=== PATIENT | female | born 1960 | race Caucasian/White ===

== ENCOUNTER 2018-12-09 06:25 | Day surgery (SDC) | payer MEDICARE, OTHER ==
--- NOTE | 2018-11-27 10:21 | PCM.PREANE ---
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 - Allergies Allergies/Adverse Reactions: Allergies Allergy/AdvReac Type Severity Reaction Status Date / Time bacitracin Allergy Edema Verified 07/30/14 15:00 [From Neosporin ([id number])] bacitracin zinc Allergy Edema Verified 07/30/14 15:00 [From Neosporin ([id number])] neomycin sulfate Allergy Edema Verified 07/30/14 15:00 [From Neosporin ([id number])] polymyxin B Allergy Edema Verified 07/30/14 15:00 [From Neosporin ([id number])] - Anesthesia Plan Pre-Op Medication Ordered: Beta Jodie Beta Jodie: Atenolol Med Last Dose Date: 11/28/18 - Acknowledgements Anesthesia Type Planned: MAC Pt an Appropriate Candidate for the Planned Anesthesia: Yes Alternatives and Risks of Anesthesia Discussed w Pt/Guardian: Yes Pt/Guardian Understands and Agrees with Anesthesia Plan: Yes PreAnesthesia Questionnaire - HOME MEDS Home Medications: Home Meds Aspirin [Halfprin] 81 mg PO DAILY 07/30/14 [History] Calcium Carbonate 1,200 mg PO DAILY 07/30/14 [History] Cholecalciferol (Vitamin D3) [Vitamin D] 1,000 units PO DAILY 07/30/14 [History] Fenofibrate 160 mg PO DAILY 07/30/14 [History] Fish Oil/[place]-3 Fatty Acids [Fish Oil 1,000 MG] 1,000 mg PO DAILY 07/30/14 [ History] Levothyroxine [Synthroid] 50 mcg PO BEDTIME 07/30/14 [History] - CURRENT (IN HOUSE) MEDS Current Meds: Current Medications Lactated Ringer's (Ringers, Lactated) 1,000 mls @ 125 mls/hr IV ASDIRECTED SATISH Stop: 11/28/18 23:00 Lidocaine/Sodium Bicarbonate (Buffered Lidocaine 1% In Ns 8.4%) 0.25 ml IDERM ONETIME PRN PRN Reason: Prior to IV Start Stop: 11/28/18 18:00 Sodium Chloride (Saline Flush) 10 ml FLUSH ASDIRECTED PRN PRN Reason: Keep Vein Open Stop: 11/28/18 18:00
[~2018-12-09 06:25] MED LIST: Lactated Ringers 1,000 ML IV SCH; Lidocaine 1%/Sod Bicarbonate in NS 8.4% 1 ML Syringe IDERM PRN; Sodium Chloride 0.9% 10 ML Syringe FLUSH PRN
[2018-12-09] MEDS ORDERED: Propofol 200 MG/20 ML SDV ONE (06:27)
[2018-12-09] MEDS ORDERED: Midazolam 1 MG/ML 2 ML SDV ONE (06:27)
[2018-12-09] MEDS ORDERED: fentaNYL 100 MCG/2 ML SDV ONE (06:27)
[2018-12-09] MEDS ORDERED: Lidocaine 1% 4 ML ONE (06:28)
[2018-12-09] MEDS ORDERED: Bupivacaine 0.25% 30 ML SDV ONE (06:42)
[2018-12-09] MEDS ORDERED: Lidocaine 1% 30 ML SDV ONE (06:42)
[2018-12-09] MEDS ORDERED: Lidocaine 1%/Sod Bicarbonate in NS 8.4% 1 ML Syringe IDERM PRN (07:00)
[2018-12-09] MEDS ORDERED: Lactated Ringers 1,000 ML IV SCH (07:00)
[2018-12-09] MEDS ORDERED: Sodium Chloride 0.9% 10 ML Syringe FLUSH PRN (07:00)
--- NOTE | 2018-12-09 07:07 | PCM.PREANE ---
Preanesthetic Assessment - Anesthesia/Transfusion/Family Hx Anesthesia History: Prior Anesthesia Without Reaction Family History of Anesthesia Reaction: Yes (Daughter had an episode of tachycardia with anesthesia.) Transfusion History: No Prior Transfusion(s) Intubation History: Unknown - Review of Systems General: No Symptoms Pulmonary: No Symptoms Cardiovascular: Other (PVCs on previous EKG. ) Gastrointestinal: Constipation Neurological: Other (Hemiplegia in 2005 left side. Cauda Equina Syndrome at Age 13) Other: Reports: Thyroid Problems (Hypothyroid) - Physical Assessment NPO Status Date: 11/27/18 Pulse: 68 O2 Sat by Pulse Oximetry: 94 Respiratory Rate: 16 Blood Pressure: 117/90 Height: 1.7 m Weight: 85 kg ASA Class: 2 Mental Status: Alert & Oriented x3 Airway Class: Mallampati = 2 Dentition: Reports: Partial (Upper) Thyro-Mental Finger Breadths: 2 Mouth Opening Finger Breadths: 3 ROM/Head Extension: Full Lungs: Clear to Auscultation, Normal Respiratory Effort Cardiovascular: Regular Rate, Regular Rhythm - Lab Values: Laboratory Last Values MRSA (PCR) Negative 12/03/18 14:46 - Allergies Allergies/Adverse Reactions: Allergies Allergy/AdvReac Type Severity Reaction Status Date / Time bacitracin Allergy Edema Verified 12/06/18 14:58 [From Neosporin ([id number])] bacitracin zinc Allergy Edema Verified 12/06/18 14:58 [From Neosporin ([id number])] neomycin sulfate Allergy Edema Verified 12/06/18 14:58 [From Neosporin ([id number])] polymyxin B Allergy Edema Verified 12/06/18 14:58 [From Neosporin ([id number])] - Anesthesia Plan Beta Jodie: Atenolol Med Last Dose Date: 12/08/18 Med Last Dose Time: 23:00 - Acknowledgements Anesthesia Type Planned: MAC Pt an Appropriate Candidate for the Planned Anesthesia: Yes Alternatives and Risks of Anesthesia Discussed w Pt/Guardian: Yes Pt/Guardian Understands and Agrees with Anesthesia Plan: Yes PreAnesthesia Questionnaire HEENT History: Reports: Impaired Vision, Other (See Below) Other HEENT History: has dentures, reading glasses Cardiovascular History: Reports: High Cholesterol, Other (See Below) Other Cardiovascular History: pvcs Respiratory History: Reports: None FAMILY REUNIFICATION SPECIALIST History: Reports: Other (See Below) Other OB/BYN History: tubal from ectopic Musculoskeletal History: Reports: Other (See Below) Other Musculoskeletal History: hammertoe, ankle/foot deformity Neurological History: Reports: Other (See Below) Other Neuro History: paralysis and hemiplegia- was paralyzed temporarily from the waist down at age 12 for approximately 1 month due to cauda equina syndrome Psychiatric History: Reports: None Endocrine/Metabolic History: Reports: Hypothyroidism, Vitamin D Deficiency Hematologic History: Reports: None Immunologic History: Reports: None Oncologic (Cancer) History: Reports: None Dermatologic History: Reports: Other (See Below) Other Dermatologic History: corn, callouses, onchomycosis, sebaceous cyst - Past Surgical History Head Surgeries/Procedures: Reports: None HEENT Surgical History: Reports: Cataract Surgery Cardiovascular Surgical History: Reports: None Respiratory Surgical History: Reports: None GI Surgical History: Reports: Colonoscopy Female Surgical History: Reports: D&C, Tubal Ligation Male Surgical History: Reports: None Endocrine Surgical History: Reports: None Neurological Surgical History: Reports: None Musculoskeletal Surgical History: Reports: Other (See Below) Other Musculoskeletal Surgeries/Procedures:: left foot surgery with yanci Oncologic Surgical History: Reports: None Dermatological Surgical History: Reports: None - SUBSTANCE USE Smoking Status *Q: Former Smoker Recreational Drug Use History: No - HOME MEDS Home Medications: Home Meds Fish Oil/[place]-3 Fatty Acids [Fish Oil 1,000 MG] 2 g PO DAILY 07/30/14 [History] Levothyroxine [Synthroid] 50 mcg PO BEDTIME 07/30/14 [History] Anita/Cell/Lipas/Malt/Prt/Lac/in [Digestive Enzymes Capsule] 220 mg PO DAILY 12/06 [History] Atenolol 50 mg PO BEDTIME 12/06/18 [History] Pravastatin [Pravachol] 40 mg PO DAILY 12/06/18 [History] Acetaminophen/HYDROcodone [[place] 325-5 MG] 1 - 2 tab PO Q6H PRN #12 tablet 12/09 [Rx] - CURRENT (IN HOUSE) MEDS Current Meds: Current Medications Lactated Ringer's (Ringers, Lactated) 1,000 mls @ 125 mls/hr IV ASDIRECTED SATISH Stop: 12/09/18 18:00 Lidocaine/Sodium Bicarbonate (Buffered Lidocaine 1% In Ns 8.4%) 0.25 ml IDERM ONETIME PRN PRN Reason: Prior to IV Start Stop: 12/09/18 18:00 Sodium Chloride (Saline Flush) 10 ml FLUSH ASDIRECTED PRN PRN Reason: Keep Vein Open Stop: 12/09/18 18:00 Discontinued Medications Bupivacaine HCl (Marcaine 0.25%) Confirm Administered Dose 30 ml .ROUTE .STK- MED ONE Stop: 12/09/18 06:43 Fentanyl (Sublimaze) Confirm Administered Dose 100 mcg .ROUTE .STK-MED ONE Stop: 12/09/18 06:28 Lactated Ringer's (Ringers, Lactated) 1,000 mls @ 125 mls/hr IV ASDIRECTED SATISH Stop: 11/28/18 23:00 Lidocaine HCl (Xylocaine-Mpf 1%) Confirm Administered Dose 4 mls @ as directed .ROUTE .STK-MED ONE Stop: 12/09/18 06:29 Lidocaine HCl (Xylocaine-Mpf 1%) Confirm Administered Dose 30 ml .ROUTE .STK- MED ONE Stop: 12/09/18 06:43 Lidocaine/Sodium Bicarbonate (Buffered Lidocaine 1% In Ns 8.4%) 0.25 ml IDERM ONETIME PRN PRN Reason: Prior to IV Start Stop: 11/28/18 18:00 Midazolam HCl (Versed 1 Mg/Ml) Confirm Administered Dose 2 mg .ROUTE .STK-MED ONE Stop: 12/09/18 06:28 Propofol (Diprivan 20 Ml) Confirm Administered Dose 600 mg .ROUTE .STK-MED ONE Stop: 12/09/18 06:28 Sodium Chloride (Saline Flush) 10 ml FLUSH ASDIRECTED PRN PRN Reason: Keep Vein Open Stop: 11/28/18 18:00
--- NOTE | 2018-12-09 07:51 | PCM48HPAN ---
Post Anesthesia Note - EVALUATION WITHIN 48HRS OF ANESTHETIC Vital Signs in Normal Range: Yes Patient Participated in Evaluation: Yes Respiratory Function Stable: Yes Airway Patent: Yes Cardiovascular Function Stable: Yes Hydration Status Stable: Yes Pain Control Satisfactory: Yes Nausea and Vomiting Control Satisfactory: Yes Mental Status Recovered: Yes Pulse Rate: 64 SaO2: 95 Resp Rate: 16 Temperature: 36.6 C Blood Pressure: 90/68
[2018-12-09 14:06] VITALS: BP 121/84
--- NOTE | 2018-12-11 14:00 | PCM.OPNOTE ---
- General Post-Op/Procedure Note Date of Surgery/Procedure: 12/09/18 Operative Procedure(s): left thumb a1 toby release Pre Op Diagnosis: left thumb stenosing tenosynovitis Post-Op Diagnosis: Same Anesthesia Technique: Local, MAC Primary Surgeon: Yves Romero Anesthesia Provider: Carli Ramos Shipping And Receiving Weigher: Megan Jackson EBL in mLs: 5 Complications: None Condition: Good
--- NOTE | 2018-12-11 14:21 | OR ---
DATE OF OPERATION: 12/09/2018 SURGEON: Yves Romero MD OPERATION PERFORMED: Left thumb A1 toby release. PREOPERATIVE DIAGNOSIS: Left thumb stenosing tenosynovitis. POSTOPERATIVE DIAGNOSIS: Left thumb stenosing tenosynovitis. ANESTHESIA: Local MAC. ANESTHESIA PROVIDER: Maki Ontiveros. PADDER: Megan Hassan PA-C ESTIMATED BLOOD LOSS: Less than 5 mL. COMPLICATIONS: None. CONDITION: Stable. DESCRIPTION OF PROCEDURE: The patient was identified in the preop holding area. Proper site was marked and identified by surgeon. The patient was taken back to the operating theater where after adequate anesthesia, the patient's left upper extremity was sterilely prepped and draped in the usual sterile fashion. OR time-out was performed. The patient did not receive antibiotics and is not indicated for soft tissue hand procedure. At this time, left upper extremity was exsanguinated with the use of an Esmarch on the forearm. At this time, 1% lidocaine without epinephrine and 0.25% Marcaine without epinephrine were used to anesthetize the incisional site over the MCP joint, incision was made. Blunt dissection was taken down to the A1 toby. Ragnell retractors were placed on the radial and ulnar side to protect the neurovascular bundles. Montague blade was then used to resect the A1 toby. Tenotomy scissors was used to further release both proximally and distally. At this time, it was found to be adequately released. The tendon showed no signs of adhesions. Adequate saline was irrigated through the wound. 4-0 nylon suture was used for closure of the skin. The patient was placed in a sterile soft dressing and sent to the PACU in stable condition. MMODAL /[id number]
== END 2018-12-09 09:30 | disposition home or self-care (01) ==
LOC: JD.SDS 06:25
PROVIDERS: ATTEND Orthopaedic Surgery
DX: M65.842 Other synovitis and tenosynovitis, left hand (principal); E78.2 Mixed hyperlipidemia; E03.9 Hypothyroidism, unspecified; E55.9 Vitamin D deficiency, unspecified; E78.00 Pure hypercholesterolemia, unspecified; K59.09 Other constipation; Z79.899 Other long term (current) drug therapy; Z88.1 Allergy status to other antibiotic agents; Z87.891 Personal history of nicotine dependence
CPT/HCPCS: 26055; 87641; 93005; J2250; J2704; J3010; J3490; J7120; J2001

== ENCOUNTER 2025-07-25 15:16 | Emergency (ER) | payer MEDICARE, OTHER ==
[2025-07-25 18:37] VITALS: BP 150/85; PULSE 72
== END 2025-07-25 18:30 | disposition home or self-care (01) ==
LOC: JD.ED 15:16
DX: R14.1 Gas pain (principal); R19.7 Diarrhea, unspecified; E78.00 Pure hypercholesterolemia, unspecified; Z98.890 Other specified postprocedural states; Z79.899 Other long term (current) drug therapy; Z88.8 Allergy status to other drugs, medicaments and biological substances
CPT/HCPCS: 74176; 74176-26; 99283; 99284